=== PATIENT | male | born 1950 | race Caucasian/White ===

== ENCOUNTER 2018-08-12 18:40 | Inpatient (IN) | payer OTHER, MEDICAID ==
[2018-08-12] MEDS: morphine 10 MG INJ IM ×3 (19:00→19:15)
[2018-08-12] MEDS: OXYCODONE/ACETAMINOPHEN (5/325) TAB PO (19:52)
[2018-08-12] MEDS: LIDOCAINE 1% (MPF) 30 ML INJ INJ ×2 (20:00→21:40)
[2018-08-12] MEDS: BUPIVACAINE 0.5% 30 ML VIAL INJ (20:00)
[2018-08-12 21:45] LABS: ADD MAN DIFF? NO
[2018-08-12 21:49] LABS: BASOPHIL # 0.1 10^3/ul (0.0-0.1); BASOPHILS % 0.3 % (0.0-2.0); EOSINOPHILS % 0.1 % (0.0-7.0); HEMOGLOBIN 12.3 g/dl (14.0-18.0); LYMPHOCYTES # 1.2 10^3/ul (0.8-2.9); LYMPHOCYTES % 7.6 % (15.0-51.0); MEAN CORPUSCULAR HGB CONC 32.4 g/dl (32.0-37.0); MEAN CORPUSCULAR VOLUME 89.6 fl (82.0-101.0); MEAN PLATELET VOLUME 11.3 fl (7.4-10.4); MONOCYTE # 0.7 10^3/ul (0.3-0.9); MONOCYTES % 4.8 % (0.0-11.0); NEUTROPHIL # 13.2 10^3/ul (1.6-7.5); NEUTROPHILS % 86.8 % (39.0-77.0); PLATELET COUNT 176 10^3/UL (140-415); RED BLOOD COUNT 4.24 10^6/ul (4.70-6.10); RED CELL DISTRIBUTION WIDTH 14.1 % (11.5-14.5)
[2018-08-12 21:49] LABS: WHITE BLOOD COUNT 15.2 10^3/ul (4.8-10.8)
[2018-08-12] MEDS ORDERED: ONDANSETRON 4 MG INJ IV (22:00)
[2018-08-12] MEDS ORDERED: ACETAMINOPHEN 325 MG TAB PO (22:00)
[2018-08-12 22:07] LABS: INR 0.97; PARTIAL THROMBOPLASTIN TIME 26.4 Sec (23.0-35.0)
[2018-08-12 22:08] LABS: ANION GAP 9 (5-13); BLOOD UREA NITROGEN 17 mg/dl (7-20); CALCIUM 9.3 mg/dl (8.4-10.2); CARBON DIOXIDE 26 mmol/L (21-31); CHLORIDE 104 mmol/L (97-110); CREATININE 1.11 mg/dl (0.61-1.24); Estimated GFR > 60 mL/min (>60); GLUCOSE 103 mg/dl (70-220); POTASSIUM 4.7 mmol/L (3.5-5.1); SODIUM 139 mmol/L (135-144)
[2018-08-13] MEDS ORDERED: ONDANSETRON 4 MG INJ IV ×2 (00:30→19:00)
[2018-08-13] MEDS ORDERED: ALBUTEROL/IPRATROPIUM (NEB) 3 ML AMP HHN (00:30)
[2018-08-13] MEDS ORDERED: NACL 0.9% 3 ML SYG IV ×2 (00:30→19:00)
[2018-08-13] MEDS: DEXTROSE 5%-0.45% NACL 1,000 ML IV ×3 (00:53→21:00)
[2018-08-13 05:25] LABS: ADD MAN DIFF? NO
[2018-08-13 05:38] LABS: WHITE BLOOD COUNT 8.9 10^3/ul (4.8-10.8)
[2018-08-13 05:38] LABS: BASOPHILS % 0.3 % (0.0-2.0); EOSINOPHILS # 0.1 10^3/ul (0.0-0.5); EOSINOPHILS % 0.9 % (0.0-7.0); HEMATOCRIT 36.1 % (42.0-52.0); HEMOGLOBIN 11.6 g/dl (14.0-18.0); LYMPHOCYTES # 2.7 10^3/ul (0.8-2.9); MEAN CORPUSCULAR HEMOGLOBIN 29.2 pg (29.0-33.0); MEAN CORPUSCULAR HGB CONC 32.1 g/dl (32.0-37.0); MEAN CORPUSCULAR VOLUME 90.9 fl (82.0-101.0); MEAN PLATELET VOLUME 11.9 fl (7.4-10.4); MONOCYTES % 10.8 % (0.0-11.0); NEUTROPHIL # 5.2 10^3/ul (1.6-7.5); NEUTROPHILS % 57.8 % (39.0-77.0); PLATELET COUNT 154 10^3/UL (140-415); RED BLOOD COUNT 3.97 10^6/ul (4.70-6.10); RED CELL DISTRIBUTION WIDTH 14.4 % (11.5-14.5)
[2018-08-13 05:57] LABS: ALANINE AMINOTRANSFERASE 13 IU/L (13-69); ALBUMIN 3.9 g/dl (3.3-4.9); ALBUMIN/GLOBULIN RATIO 1.25; ALKALINE PHOSPHATASE 74 IU/L (42-121); ANION GAP 8 (5-13); ASPARTATE AMINO TRANSFERASE 33 IU/L (15-46); BILIRUBIN,INDIRECT 0.6 mg/dl (0-1.1); BILIRUBIN,TOTAL 0.6 mg/dl (0.2-1.3); BLOOD UREA NITROGEN 17 mg/dl (7-20); CARBON DIOXIDE 28 mmol/L (21-31); CHLORIDE 104 mmol/L (97-110); CREATININE 1.03 mg/dl (0.61-1.24); Estimated GFR > 60 mL/min (>60); GLUCOSE 115 mg/dl (70-220); MAGNESIUM 2.1 mg/dl (1.7-2.5); PHOSPHORUS 3.6 mg/dl (2.5-4.9); POTASSIUM 4.5 mmol/L (3.5-5.1); SODIUM 140 mmol/L (135-144)
[2018-08-13] MEDS ORDERED: LIDOCAINE 2% (SDV) 5 ML INJ (07:00)
[2018-08-13] MEDS: FAMOTIDINE 20 MG INJ IV ×2 (09:34→22:04)
[2018-08-13] MEDS: METHADONE 10 MG TAB PO (09:50)
[2018-08-13] MEDS ORDERED: DOCUSATE SODIUM 100 MG CAP PO (12:30)
[2018-08-13] MEDS ORDERED: BUPIVACAINE 0.5% (SDV) 30 ML INJ (14:15)
[2018-08-13] MEDS ORDERED: MIDAZOLAM 1 MG/ML 2 ML INJ (14:17)
[2018-08-13] MEDS: POLYMYXIN/BACITRACIN 1L IRRIG (15:22)
[2018-08-13] MEDS ORDERED: PROPOFOL 20 ML (16:51)
[2018-08-13] MEDS ORDERED: DEXAMETHASONE 4 MG/ML 5 ML INJ (16:52)
[2018-08-13] MEDS ORDERED: ROCURONIUM 50 MG INJ (16:52)
[2018-08-13] MEDS ORDERED: ONDANSETRON 4 MG INJ (16:52)
[2018-08-13] MEDS ORDERED: LABETALOL HCL 20MG INJ (16:53)
[2018-08-13] MEDS ORDERED: morphine 10 MG INJ (16:58)
[2018-08-13] MEDS ORDERED: POLYMYXIN/BACITRACIN 1L IRRIG (17:42)
[2018-08-13] MEDS ORDERED: KETOROLAC 30 MG INJ (17:44)
[2018-08-13] MEDS ORDERED: CEFAZOLIN 1 GM INJ (18:17)
[2018-08-13] MEDS ORDERED: METOCLOPRAMIDE 10 MG INJ IV (19:00)
[2018-08-13] MEDS ORDERED: BISACODYL 10 MG SUPP PR (19:00)
[2018-08-13] MEDS ORDERED: MIDAZOLAM 1 MG/ML 2 ML INJ IV (19:00)
[2018-08-13] MEDS ORDERED: HYDROmorphONE 1 MG/5 ML IV SYRINGE IV ×3 (19:00)
[2018-08-13] MEDS ORDERED: KETOROLAC 30 MG INJ IV (19:00)
[2018-08-13] MEDS ORDERED: SENNA/DOCUSATE NA (8.6MG/50MG) TAB PO (19:00)
[2018-08-13] MEDS ORDERED: NALOXONE (0.4 MG/ML) INJ IV (19:00)
[2018-08-13] MEDS ORDERED: ALBUTEROL 0.083% (NEB) 2.5 MG/3 ML AMP HHN (19:00)
[2018-08-13] MEDS ORDERED: EPHEDrine SULFATE 50 MG/5 ML SYG IV (19:00)
[2018-08-13] MEDS ORDERED: OXYCODONE/ACETAMINOPHEN (5/325) TAB PO ×2 (19:00)
[2018-08-13] MEDS ORDERED: DIPHENHYDRAMINE 50 MG INJ IV ×2 (19:00)
[2018-08-13] MEDS ORDERED: FENTAnyl 50 MCG/ML VIAL IV ×3 (19:00)
[2018-08-13] MEDS ORDERED: hydrALAzine 20 MG INJ IV (19:00)
[2018-08-13] MEDS ORDERED: NA PHOSPHATE/BIPHOS 133 ML ENEMA PR (19:00)
[2018-08-13] MEDS ORDERED: LABETALOL HCL 20MG INJ IV (19:00)
[2018-08-13] MEDS ORDERED: oxyCODONE 5 MG TAB PO ×2 (19:00)
[2018-08-13] MEDS ORDERED: MEPERIDINE 25 MG INJ IV (19:00)
[2018-08-13] MEDS: CEFAZOLIN 2 GM/50 ML (PMX) 50 ML IVPB (19:07)
[2018-08-13] MEDS: LACTATED RINGER'S 1,000 ML IV (19:08)
[2018-08-13] MEDS: DOCUSATE SODIUM 100 MG CAP PO (19:13)
[2018-08-13] MEDS: ACETAMINOPHEN 500 MG TAB PO (22:00)
[2018-08-13] MEDS: GABAPENTIN 300 MG CAP PO (22:02)
[2018-08-14] MEDS: CEFAZOLIN 2 GM/50 ML (PMX) 50 ML IVPB ×2 (03:22→12:15)
[2018-08-14 04:58] LABS: ADD MAN DIFF? NO
[2018-08-14 05:05] LABS: HEMATOCRIT 34.9 % (42.0-52.0); HEMOGLOBIN 11.1 g/dl (14.0-18.0); LYMPHOCYTES # 0.9 10^3/ul (0.8-2.9); LYMPHOCYTES % 9.6 % (15.0-51.0); MEAN CORPUSCULAR HEMOGLOBIN 29.2 pg (29.0-33.0); MEAN CORPUSCULAR HGB CONC 31.8 g/dl (32.0-37.0); MEAN CORPUSCULAR VOLUME 91.8 fl (82.0-101.0); MEAN PLATELET VOLUME 11.8 fl (7.4-10.4); MONOCYTE # 0.8 10^3/ul (0.3-0.9); MONOCYTES % 8.9 % (0.0-11.0); NEUTROPHIL # 7.3 10^3/ul (1.6-7.5); NEUTROPHILS % 81.2 % (39.0-77.0); PLATELET COUNT 143 10^3/UL (140-415); RED CELL DISTRIBUTION WIDTH 14.5 % (11.5-14.5)
[2018-08-14 05:38] LABS: ANION GAP 8 (5-13); BLOOD UREA NITROGEN 15 mg/dl (7-20); CALCIUM 8.8 mg/dl (8.4-10.2); CARBON DIOXIDE 28 mmol/L (21-31); CHLORIDE 104 mmol/L (97-110); Estimated GFR > 60 mL/min (>60); GLUCOSE 150 mg/dl (70-220); MAGNESIUM 1.9 mg/dl (1.7-2.5); PHOSPHORUS 3.2 mg/dl (2.5-4.9); POTASSIUM 5.1 mmol/L (3.5-5.1); SODIUM 140 mmol/L (135-144)
[2018-08-14] MEDS: DEXTROSE 5%-0.45% NACL 1,000 ML IV ×2 (05:52→16:17)
[2018-08-14] MEDS: ACETAMINOPHEN 500 MG TAB PO ×3 (05:54→21:15)
[2018-08-14] MEDS: LACTATED RINGER'S 1,000 ML IV ×2 (08:47→19:43)
[2018-08-14] MEDS: DOCUSATE SODIUM 100 MG CAP PO ×2 (08:47→21:15)
[2018-08-14] MEDS: FAMOTIDINE 20 MG INJ IV (08:47)
[2018-08-14] MEDS: ASPIRIN (EC) 81 MG TAB PO ×2 (08:47→21:15)
[2018-08-14] MEDS ORDERED: METHADONE 10 MG TAB PO (09:30)
[2018-08-14] MEDS: PANTOPRAZOLE (EC) 40 MG TAB PO (10:37)
[2018-08-14] MEDS: METHADONE 10 MG TAB PO (10:38)
[2018-08-14] MEDS: BENAZEPRIL 20 MG TAB PO (10:38)
[2018-08-14] MEDS: AMLODIPINE 5 MG TAB PO (10:38)
[2018-08-14] MEDS: oxyCODONE 5 MG TAB PO (12:19)
[2018-08-14] MEDS: POLYETHYLENE GLYCOL 17 GM PACKET PO (12:24)
[2018-08-14] MEDS: HYDROmorphONE 1 MG/ML SYG IV (18:13)
[2018-08-14] MEDS ORDERED: ONDANSETRON 4 MG INJ IV (19:00)
[2018-08-14] MEDS: GABAPENTIN 300 MG CAP PO (21:15)
[2018-08-15] MEDS: DEXTROSE 5%-0.45% NACL 1,000 ML IV ×2 (02:17→12:17)
[2018-08-15 05:10] LABS: ADD MAN DIFF? NO
[2018-08-15 05:15] LABS: BASOPHILS % 0.3 % (0.0-2.0); EOSINOPHILS # 0.1 10^3/ul (0.0-0.5); EOSINOPHILS % 0.7 % (0.0-7.0); HEMATOCRIT 32.1 % (42.0-52.0); HEMOGLOBIN 10.2 g/dl (14.0-18.0); LYMPHOCYTES # 3.1 10^3/ul (0.8-2.9); LYMPHOCYTES % 27.8 % (15.0-51.0); MEAN CORPUSCULAR HEMOGLOBIN 29.1 pg (29.0-33.0); MEAN CORPUSCULAR HGB CONC 31.8 g/dl (32.0-37.0); MEAN CORPUSCULAR VOLUME 91.7 fl (82.0-101.0); MEAN PLATELET VOLUME 12.1 fl (7.4-10.4); MONOCYTE # 1.2 10^3/ul (0.3-0.9); MONOCYTES % 10.7 % (0.0-11.0); NEUTROPHIL # 6.6 10^3/ul (1.6-7.5); NEUTROPHILS % 60.1 % (39.0-77.0); PLATELET COUNT 129 10^3/UL (140-415); RED CELL DISTRIBUTION WIDTH 14.6 % (11.5-14.5)
[2018-08-15] MEDS: ACETAMINOPHEN 500 MG TAB PO ×2 (06:00→13:53)
[2018-08-15] MEDS ORDERED: PANTOPRAZOLE (EC) 40 MG TAB PO (06:00)
[2018-08-15 06:27] LABS: ALBUMIN 3.4 g/dl (3.3-4.9); ANION GAP 6 (5-13); BLOOD UREA NITROGEN 15 mg/dl (7-20); CALCIUM 8.6 mg/dl (8.4-10.2); CARBON DIOXIDE 29 mmol/L (21-31); CHLORIDE 106 mmol/L (97-110); CREATININE 1.01 mg/dl (0.61-1.24); GLUCOSE 94 mg/dl (70-220); MAGNESIUM 1.9 mg/dl (1.7-2.5); PHOSPHORUS 2.2 mg/dl (2.5-4.9); POTASSIUM 3.7 mmol/L (3.5-5.1); SODIUM 141 mmol/L (135-144)
[2018-08-15] MEDS: PANTOPRAZOLE (EC) 40 MG TAB PO (06:32)
[2018-08-15] MEDS: MAGNESIUM HYDROXIDE 30ML CUP PO (06:37)
[2018-08-15] MEDS: LACTATED RINGER'S 1,000 ML IV (08:13)
[2018-08-15] MEDS: BENAZEPRIL 20 MG TAB PO (09:00)
[2018-08-15] MEDS: ASPIRIN (EC) 81 MG TAB PO (09:00)
[2018-08-15] MEDS: DOCUSATE SODIUM 100 MG CAP PO (09:00)
[2018-08-15] MEDS: AMLODIPINE 5 MG TAB PO (09:01)
[2018-08-15] MEDS: METHADONE 10 MG TAB PO (09:04)
[2018-08-15] MEDS: HYDROmorphONE 1 MG/ML SYG IV (10:34)
[2018-08-15] MEDS: oxyCODONE 5 MG TAB PO (13:48)
[2018-08-15] MEDS: POTASSIUM PHOSPHATE 15 MM in SOD CHLORIDE 0.9% 250 ML IVPB (13:52)
== END 2018-08-15 20:00 | DRG 493 ==
LOC: E/R 18:40 → MS1 21:55
PROC: 0QSJ04Z Reposition Right Fibula with Internal Fixation Device, Open Approach (ICD-10-PCS; principal; 2018-08-13 12:00)
PROC: 0QSG04Z Reposition Right Tibia with Internal Fixation Device, Open Approach (ICD-10-PCS; 2018-08-13 12:00)
PROC: 0QSGXZZ Reposition Right Tibia, External Approach (ICD-10-PCS; 2018-08-13 14:16)
PROC: 0QSJXZZ Reposition Right Fibula, External Approach (ICD-10-PCS; 2018-08-13 14:16)
PROC: 3E0U3BZ Introduction of Anesthetic Agent into Joints, Percutaneous Approach (ICD-10-PCS; 2018-08-13 14:16)
DX: S82.851A Displaced trimalleolar fracture of right lower leg, initial encounter for closed fracture (principal); F11.20 Opioid dependence, uncomplicated; B19.20 Unspecified viral hepatitis C without hepatic coma; G47.33 Obstructive sleep apnea (adult) (pediatric); I10 Essential (primary) hypertension; K21.9 Gastro-esophageal reflux disease without esophagitis; W01.0XXA Fall on same level from slipping, tripping and stumbling without subsequent striking against object, initial encounter; Y92.009 Unspecified place in unspecified non-institutional (private) residence as the place of occurrence of the external cause; Z87.891 Personal history of nicotine dependence
CPT/HCPCS: 36415; 71045; 73590; 73610-RT; 73630; 80048; 80053; 80069; 83735; 84100; 85025; 85610; 85730; 93005; 93306; 96374; 97116; 97161; 97167; 99285-25

== ENCOUNTER → 2018-08-29 | Outpatient (CLI) | payer OTHER, MEDICAID | END | disposition home or self-care (01) | LOC: HKI 11:49 | DX: S82.891D Other fracture of right lower leg, subsequent encounter for closed fracture with routine healing (principal); X58.XXXD Exposure to other specified factors, subsequent encounter ==

== ENCOUNTER → 2018-09-29 | Outpatient (CLI) | payer OTHER, MEDICAID | END | disposition home or self-care (01) | LOC: HKI 14:11 | DX: S82.891D Other fracture of right lower leg, subsequent encounter for closed fracture with routine healing (principal); X58.XXXD Exposure to other specified factors, subsequent encounter ==